=== PATIENT | male | born 1975 | race African-American/Black ===

== ENCOUNTER 2016-11-03 10:56 | Emergency (ER) | payer SELFPAY ==
[~2016-11-03] VITALS: Ht 167.6 cm; Wt 70.0 kg
[~2016-11-03 10:56] MED LIST: DICL50 PO
[2016-11-03 10:57] VITALS: BP 110/66; PULSE 56; RESP 14; TEMP 98; O2SAT 100
--- NOTE | 2016-11-03 12:02 | PD ---
HPI Chief Complaint: Injury Time Seen by Provider: 11:25 Travel History International Travel<30 days: No Contact w/Intl Traveler<30days: No Traveled to known affect area: No History of Present Illness HPI 41-year-old male presents emergency department for evaluation of left fifth toe pain. Patient reports in August he fractured the toe while incarcerated. He reports he was never referred to orthopedic or podiatry. He reports he's had continued pain since the break. He reports he did not with a postop shoe that was given to him. He denies numbness/tingling/weakness in the extremity. Pain is localized to the toe nonradiating worse with weightbearing relieved with rest. Severity 3 out of 10. He denies fever, chills, redness or swelling of the site. [facility] Past Medical History Medical History: Denies Significant Hx Tetanus Vaccination: < 5 Years Influenza Vaccination: No Past Surgical History Surgical History: No Previous Surgery Social History Alcohol Use: Yes (PT STATES "OCCASIONAL") Tobacco Use: No Substance Use: No Allergies-Medications (Allergen,Severity, Reaction): Coded Allergies: No Known Allergies (Verified , 11/03/16) Reported Meds & Prescriptions Reported Meds & Active Scripts Active No Active Prescriptions or Reported Medications Review of Systems Except as stated in HPI: all other systems reviewed are Neg Physical Exam Narrative GENERAL: Well-nourished, well-developed patient. SKIN: Focused skin assessment warm/dry. HEAD: Normocephalic. EYES: No scleral icterus. No injection or drainage. NECK: Supple, trachea midline. No JVD or lymphadenopathy. CARDIOVASCULAR: Regular rate and rhythm without murmurs, gallops, or rubs. RESPIRATORY: Breath sounds equal bilaterally. No accessory muscle use. GASTROINTESTINAL: Abdomen soft, non-tender, nondistended. MUSCULOSKELETAL: No cyanosis, or edema. Left foot: Fifth digit has moderate swelling and tender to palpation. Normal alignment. Brisk cap refill. No deformity. BACK: Nontender without obvious deformity. No CVA tenderness. Data Data Last Documented VS Vital Signs Date Time Temp Pulse Resp B/P Pulse Ox O2 Delivery O2 Flow Rate FiO2 11/03/16 11:26 Room Air 11/03/16 10:57 98.0 56 14 110/66 100 Orders Toe (Min 2vws) (11/03/16 ) [facility] Medical Decision Making Medical Screen Exam Complete: Yes Emergency Medical Condition: Yes Differential Diagnosis Toe fracture, toe sprain, other Narrative Course 41-year-old male percents emergency department for reevaluation of left fifth toe pain. He reports he broke the toe in August. He never followed up with orthopedic or podiatry. He reports he was given a postop shoe but did not work. He is requesting x-ray. He denies fever or chills. X-ray of the foot reveal a left fifth phalanx fracture. Patient was instructed to wear the postop shoe and follow-up with orthopedic or podiatry. Patient agrees to plan. Diagnosis Primary Impression: Toe fracture, left Qualified Code: S92.512A - Closed fracture of proximal phalanx of lesser toe of left foot, physeal involvement unspecified, initial encounter Referrals: Orthopedist Roll Reclaimer Additional Instructions: With a postop boot as instructed. Make an appointment for follow-up with orthopedic or podiatry. Ice and elevate the extremity. Take [id number] Motrin and/or Tylenol as needed for pain. Scripts No Active Prescriptions or Reported Meds Disposition: 01 DISCHARGE HOME Condition: Stable Deidre Nolan Nov 03, 2016 12:02
--- NOTE | 2016-11-03 12:33 | RADRPT ---
EXAM DATE/TIME: 11/03/2016 11:42 [facility] COMPARISON: No previous studies available for comparison. INDICATIONS : Left 5th toe pain. Previous fracture months ago. MEDICAL HISTORY : None. SURGICAL HISTORY : None. ENCOUNTER: Initial ACUITY: 2 months PAIN SCORE: 4/10 LOCATION: Left 5th toe FINDINGS: There is evidence of an acute displaced fracture involving the distal portion of the left 5th proxima l phalanx with involvement of the articular surface. There is approximately 1 mm of articular stepof f. Erosive changes are also noted involving the distal portion of the left 5th proximal phalanx. So ft tissue swelling is noted involving the left 5th digit. CONCLUSION: 1. Acute mildly displaced fracture involving the distal portion of the left fifth proximal phalanx w ith 1 mm of articular stepoff. Underlying erosive changes are also noted involving the distal portio n of the left 5th proximal phalanx. Iván Jhaveri MD on November 03, 2016 at 12:26 Board Certified Radiologist. This report was verified electronically.
== END 2016-11-03 12:47 | disposition home or self-care (01) ==
LOC: NEPK 10:56
DX: S92.512A Displaced fracture of proximal phalanx of left lesser toe(s), initial encounter for closed fracture (principal); X58.XXXA Exposure to other specified factors, initial encounter
CPT/HCPCS: 73660; 99283